=== PATIENT | male | born 1970 | race Caucasian/White ===

== ENCOUNTER → 2019-02-27 | Outpatient (REF) | payer BC ==
[2019-02-28 13:11] LABS: PERCENT SATURATION 5.9 % (19.7-50.0)
== END ==
LOC: M LAB REF 12:33
PROVIDERS: ATTEND Internal Medicine
DX: D64.9 Anemia, unspecified (principal)

== ENCOUNTER → 2019-03-23 | Outpatient (REF) | payer BC ==
[2019-03-26 15:18] LABS: HAPTOGLOBIN 102 mg/dL (34-200); TISSUE TRANSGLUTAMINASE IgA <2 U/mL (0-3)
== END ==
LOC: M LAB REF 12:22
PROVIDERS: ATTEND Internal Medicine
DX: D50.9 Iron deficiency anemia, unspecified (principal)

== ENCOUNTER 2019-04-27 10:58 | Day surgery (SDC) | payer BC ==
[~2019-04-27] VITALS: Ht 177.8 cm; Wt 96.5 kg
[~2019-04-27 10:58] MED LIST: AMLO25TA PO; FERR324T2 PO; LIDOCAINE 2% INJ 100 MG/5 ML SDV (FOR ANES.) As Ordered ONE; NS 1,000 ML IV ONE; PROPOFOL 200 MG/20 ML VIAL As Ordered ONE; RAMI1CAP26 PO
--- NOTE | 2019-04-27 11:43 | ROOR ---
Patient Name: Zev Vee Procedure Date: 04/27/2019 11:31 AM Date of : 1970 Age: 48 Room: [facility] Gender: Male Note Status: Finalized Procedure: Upper GI endoscopy Indications: Unexplained iron deficiency anemia Providers: Scott RIVAS MD Referring MD: Laura ZAVALA MD Requesting Provider: Medicines: Monitored Anesthesia Care Complications: No immediate complications. Procedure: Pre-Anesthesia Assessment: - The heart rate, respiratory rate, oxygen saturations, blood pressure, adequacy of pulmonary ventilation, and response to care were monitored throughout the procedure. The Endoscope was introduced through the mouth, and advanced to the third part of duodenum. The upper GI endoscopy was accomplished without difficulty. The patient tolerated the procedure well. Findings: The examined esophagus was normal. Very small (insignificant) Hiatal Hernia. The entire examined stomach was normal. The examined duodenum was normal. Biopsies for histology were taken with a cold forceps for evaluation of celiac disease. Impression: - Normal esophagus. - Normal stomach with a very small (insignificant) Hiatal Hernia. - Normal examined duodenum. Biopsied. Recommendation: - Telephone endoscopist for pathology results in 2 weeks. Scott Rivas MD Scott RIVAS MD 04/27/2019 11:43:37 AM Electronically signed by Scott RIVAS MD Number of Addenda: 0 Note Initiated On: 04/27/2019 11:31 AM Estimated Blood Loss: Estimated blood loss: none.
--- NOTE | 2019-04-27 11:59 | ROOR ---
Patient Name: Zev Vee Procedure Date: 04/27/2019 11:32 AM Date of : 1970 Age: 48 Room: [facility] Gender: Male Note Status: Finalized Procedure: Colonoscopy Indications: Unexplained iron deficiency anemia Providers: Scott RIVAS MD Referring MD: Laura ZAVALA MD Requesting Provider: Medicines: Monitored Anesthesia Care Complications: No immediate complications. Procedure: Pre-Anesthesia Assessment: - The heart rate, respiratory rate, oxygen saturations, blood pressure, adequacy of pulmonary ventilation, and response to care were monitored throughout the procedure. The Colonoscope was introduced through the anus and advanced to 10 cm into the ileum. The colonoscopy was performed without difficulty. The patient tolerated the procedure well. The quality of the bowel preparation was good. Findings: The perianal and digital rectal examinations were normal. Internal hemorrhoids were found during retroflexion. The hemorrhoids were moderate. The entire examined colon appeared normal on direct and retroflexion views. The terminal ileum appeared normal. Retroflexion in the right colon was performed. Impression: - Moderate to large Internal hemorrhoids. - The entire colon is normal on direct and retroflexion views. - The examined portion of the ileum was normal. - No specimens collected. Recommendation: - Repeat colonoscopy in 10 years for screening purposes. Scott Rivas MD Scott RIVAS MD 04/27/2019 11:59:15 AM Electronically signed by Scott RIVAS MD Number of Addenda: 0 Note Initiated On: 04/27/2019 11:32 AM Estimated Blood Loss: Estimated blood loss: none.
[2019-04-27 12:29] VITALS: BP 143/93
== END 2019-04-27 12:31 | disposition home or self-care (01) ==
LOC: M OPP 10:58
PROVIDERS: ATTEND Internal Medicine Gastroenterology
DX: K64.8 Other hemorrhoids (principal); Z83.71 Family history of colonic polyps; D50.9 Iron deficiency anemia, unspecified; K44.9 Diaphragmatic hernia without obstruction or gangrene; Z79.899 Other long term (current) drug therapy

== ENCOUNTER → 2019-06-15 | Outpatient (CLI) | payer BC ==
[~2019-06-15] MED LIST changes: +E-Z-PAQUE 96% w/w SUSP 176GM BTL As Ordered ONE; -LIDOCAINE 2% INJ 100 MG/5 ML SDV (FOR ANES.) As Ordered ONE; -NS 1,000 ML IV ONE; -PROPOFOL 200 MG/20 ML VIAL As Ordered ONE
--- NOTE | 2019-06-16 17:51 | REP ---
Examination Requested: SBFT Reason For Exam: Iron-deficiency anemia Small Bowel Follow Through The procedure was performed by EZEQUIEL Rahman, under the direct supervision of Dr. Hicks. The images were reviewed with Dr. Hicks. The legal director film shows no organomegaly or pathological masses. The intestinal gas pattern appears normal. The barium was administered and the barium column was followed through the small bowel to the level of the terminal ileum. Small bowel transit time was approximately 60 minutes. During fluoroscopy gentle palpation shows all loops are freely mobile and pliable. There are no fixed or angulated loops. The small bowel mucosal pattern is normal in course and caliber. There is no transition to suggest a partial small-bowel obstruction. Spot filming of the terminal ileum shows it to be unremarkable. The appendix is visualized. Impression: 1. Unremarkable small bowel follow-through 0.7 minutes of fluoroscopy time was utilized for this procedure. Some fluoroscopic images are performed with last image hold technology. These images require no additional radiation. Reviewed by EZEQUIEL Hudson 06/15/2019 04:23 P Electronically Signed by Enrrique Hicks MD 06/16/2019 05:42 P
== END ==
LOC: M RAD 07:30
PROVIDERS: ATTEND Physician Assistant Medical
DX: D50.9 Iron deficiency anemia, unspecified (principal)

== ENCOUNTER → 2019-08-30 | Outpatient (REF) | payer BC ==
[~2019-08-30] MED LIST changes: -E-Z-PAQUE 96% w/w SUSP 176GM BTL As Ordered ONE
[2019-08-30 18:54] LABS: PERCENT SATURATION 9.5 % (19.7-50.0)
== END ==
LOC: M LAB REF 17:58
PROVIDERS: ATTEND Internal Medicine
DX: D50.9 Iron deficiency anemia, unspecified (principal)

== ENCOUNTER → 2020-10-22 | Outpatient (REF) | payer BC ==
[2020-10-23 13:15] LABS: PERCENT SATURATION 7.4 % (19.7-50.0)
== END ==
LOC: M LAB REF 12:20
PROVIDERS: ATTEND Internal Medicine
DX: D50.9 Iron deficiency anemia, unspecified (principal)

== ENCOUNTER 2021-07-24 09:45 | Outpatient (CLI) | payer BC ==
[~2021-07-24] VITALS: Ht 177.8 cm; Wt 91.0 kg
[~2021-07-24 09:45] MED LIST changes: +ALBUTEROL 90 MCG/ACT 8GM HFA INHALER INH PRN; +ALBUTEROL SULFATE 2.5 MG/0.5 ML INH NEB SOLN INH PRN; +EPINEPHrine INJ 1 MG/ML 1ML AMP IM PRN; +NS 1,000 ML IV SCH; +diphenhydrAMINE 50MG/ML VIAL (J1200) IV PRN; +methylPREDNISolone 125MG 2ML VIAL IV PRN
[2021-07-24] MEDS ORDERED: ACETAMINOPHEN TAB 650MG DOSE (2X325MG) PO ONE (10:00)
[2021-07-24] MEDS ORDERED: diphenhydrAMINE 50MG CAP PO ONE (10:00)
[2021-07-24] MEDS ORDERED: [UNRECOGNIZED DRUG - OTHER] IV ONE ×2 (10:00→10:15)
[2021-07-24 10:22] VITALS: BP 144/86
[2021-07-24 10:52] VITALS: BP 146/87
[2021-07-24 11:22] VITALS: BP 147/85
[2021-07-24 12:22] VITALS: BP 148/86
== END 2021-07-24 12:22 | disposition home or self-care (01) ==
LOC: M OPCLI4PR 09:45
PROVIDERS: ATTEND Internal Medicine
DX: U07.1 COVID-19 (principal)

== ENCOUNTER → 2021-10-21 | Outpatient (REF) | payer OTHER, BC ==
[~2021-10-21] MED LIST changes: -ALBUTEROL 90 MCG/ACT 8GM HFA INHALER INH PRN; -ALBUTEROL SULFATE 2.5 MG/0.5 ML INH NEB SOLN INH PRN; -EPINEPHrine INJ 1 MG/ML 1ML AMP IM PRN; -NS 1,000 ML IV SCH; -diphenhydrAMINE 50MG/ML VIAL (J1200) IV PRN; -methylPREDNISolone 125MG 2ML VIAL IV PRN
[2021-10-21 18:57] LABS: PERCENT SATURATION 19.9 % (19.7-50.0)
== END ==
LOC: M LAB REF 16:20
PROVIDERS: ATTEND Internal Medicine
DX: D50.9 Iron deficiency anemia, unspecified (principal)

== ENCOUNTER → 2023-09-22 | Outpatient (CLI) | payer OTHER | LOC: M WUC 13:24 | PROVIDERS: ATTEND Student in an Organized Health Care Education/Training Program | DX: J20.9 Acute bronchitis, unspecified (principal); R06.2 Wheezing ==

== ENCOUNTER → 2023-11-07 | Outpatient (REF) | payer OTHER | LOC: M LAB REF 12:12 | PROVIDERS: ATTEND Internal Medicine | DX: R68.82 Decreased libido (principal) ==

== ENCOUNTER → 2024-02-03 | Outpatient (CLI) | payer OTHER ==
[~2024-02-03] MED LIST changes: +RAMI10CA64 PO; -RAMI1CAP26 PO
== END ==
LOC: M PLAIMG 12:58
PROVIDERS: ATTEND Internal Medicine
DX: R01.1 Cardiac murmur, unspecified (principal)

== ENCOUNTER → 2025-07-04 | Outpatient (REF) | payer OTHER | LOC: M LAB REF 12:35 | PROVIDERS: ATTEND Internal Medicine | DX: D50.9 Iron deficiency anemia, unspecified (principal) ==